=== PATIENT | female | born 2000 | race Caucasian/White ===

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

== ENCOUNTER → 2021-05-29 | Outpatient (CLI) | payer MEDICAID ==
[~2021-05-29] MED LIST changes: +ACHD5005 PO; +BENZ78AE5 TP; +DIBU30OI TOP; +DOCU-239 PO; +IBUP-844 PO
--- NOTE | 2021-05-29 16:13 | Diagnostic Imaging Report ---
EXAM: OB ultrasound complete. DATE: May 29, 2021. COMPARISON: March 28, 2019. INDICATION: 21-year-old female, supervision of otherwise normal . FINDINGS: Multiple grayscale sonographic images were obtained of the gravid uterus. Overview: Within the uterus there is a single living gestation in cephalic position. There is positive movement and heart motion. heart rate was identified at 146 beats per minute. The amnionic fluid volume is subjectively normal. The placenta is anterior and without previa. The cervical length is 5.7 cm. growth parameters are summarized in detail on the accompanying separate chart. The approximate mean gestational age by today's ultrasound measurements is 21 weeks 1 days +/- 1.5 week variability. Estimated weight based on today's measurements is 406 g. anatomic survey: There is no ventriculomegaly (the lateral ventricle measures 7 mm) the cerebellum, cavum septum pellucidum, falx, and cisterna magna are identified. Longitudinal and transverse images of the spine appear unremarkable. There is visualization of the stomach, kidneys and urinary bladder. The cardiac apex and stomach are on the same side of midline. There is a normal four-chamber view of the heart. There is a three-vessel cord with an unremarkable insertion into the abdominal wall. 4 extremities are seen. The upper lip is seen. IMPRESSION: 1. Single living intrauterine with approximate mean gestational age of 21 weeks 1 days +/- 1.5 week. 2. Unremarkable anatomic survey. Biometrical measurements are as follows: Biparietal 4.96 cm, age 21 weeks 1 days. Head circumference 18.30 cm, age 20 weeks 5 days. Abdominal circumference 16.21 cm, age 21 weeks 3 days. Femur length 3.55 cm, age 21 weeks 2 days. Sonographic estimate age: 21 weeks 1 days. Sonographic estimated date of delivery: 10/08/2021. Estimated Weight: 406 gm (+/- 59 gm). LMP percentile: 64%. heart rate: 146 beats per minute. number: 1 of 1. Dictated by: Dictated on workstation # [id number]
== END ==
LOC: RAD 13:00
PROVIDERS: ATTEND Obstetrics & Gynecology
DX: Z34.02 Encounter for supervision of normal first pregnancy, second trimester (principal); Z3A.21 21 weeks gestation of pregnancy
CPT/HCPCS: 76805

== ENCOUNTER 2021-06-10 03:37 | Emergency (ER) | payer MEDICAID ==
[~2021-06-10] VITALS: Ht 157 cm; Wt 62.0 kg
[2021-06-10] MEDS ORDERED: LACTATED RINGERS 1,000 ML IV STA (03:57)
[2021-06-10] MEDS ORDERED: ONDANSETRON 4 MG/2 ML (SDV) Z0FRAN IVP ONE (04:00)
[2021-06-10 04:05] LABS: BASOPHILS # (AUTO) 0.1 10^3/uL (0.0-0.1); BASOPHILS % (AUTO) 0 % (0-10); EOSINOPHILS % (AUTO) 0 % (0-10); HEMATOCRIT 32 % (35-52); HEMOGLOBIN 11.1 g/dL (11.5-16.0); LYMPHOCYTES # (AUTO) 1.8 10^3/uL (1.0-4.0); LYMPHOCYTES % (AUTO) 10 % (12-44); MEAN CORPUSCULAR HEMOGLOBIN 31 pg (25-34); MEAN CORPUSCULAR HGB CONC 35 g/dL (32-36); MEAN CORPUSCULAR VOLUME 90 fL (80-99); MONOCYTES # (AUTO) 0.8 10^3/uL (0.0-1.0); MONOCYTES % (AUTO) 5 % (0-12); NEUTROPHILS # (AUTO) 14.3 10^3/uL (1.8-7.8); NEUTROPHILS % (AUTO) 83 % (42-75); PLATELET COUNT 326 10^3/uL (130-400); WHITE BLOOD COUNT 17.2 10^3/uL (4.3-11.0)
--- NOTE | 2021-06-10 04:13 | ED Abdominal Pain ---
General Chief Complaint: Abdominal/GI Problems Stated Complaint: POSS FOOD POISONING,VOMITING,DIARRHEA,22 WKS PREG Nursing Triage Note: PT AMB TO ER WITH C/O VOMITTING FOR LAST 3 HOURS AND DIARRHIA TWICE THIS MORNING Source of Information: Patient Exam Limitations: No Limitations History of Present Illness Date Seen by Provider: Jun 10, 2021 Time Seen by Provider: 03:50 Initial Comments Here with complaint of approximately 10 episodes of vomiting and 3 episodes of diarrhea in the last few hours. She is approximately 22 weeks . She thinks she ate some bad chicken Bill. Denies fever chills. She is not vaccinated for Covid and denies contact with anybody that is sick. Nobody in the family is sick. Nobody ate the same thing that she did. She is worried about food poisoning. Timing/Duration: 1-3 Hours Severity/Quality: Moderate, Cramping Location: Epigastric Radiation: No Radiation Activities at Onset: None Modifying Factors: Worsens With Eating; Improves With Vomiting Associated Symptoms: No Back Pain, No Chest Pain, No Fever/Chills; Nausea/Vomiting; No Shortness of Air, No Weakness Allergies and Home Medications Allergies Coded Allergies: No Known Drug Allergies (Unverified , 01/01/09) Patient Home Medication List Home Medication List Reviewed: Yes Benzocaine/Menthol (Dermoplast Pain Relieving [place]) 78 Gm Aerosol, 56 ML TP UD PRN for PAIN- SEE INSTRUCTIONS Prescribed by: TONJA SNYDER on 08/11/19636 Dibucaine (Dibucaine) 30 Gm Oint, 0 GM TOP UD PRN for PAIN- SEE INSTRUCTIONS Prescribed by: TONJA SNYDER on 08/11/19636 Docusate Sodium (Dok) 100 Mg Capsule, 100 MG PO BID PRN for CONSTIPATION-1ST LINE Prescribed by: TONJA SNYDER on 08/11/19636 Hydrocodone Bit/Acetaminophen (Lortab 5 Mg Tablet) 1 Tab Tab, 1 TAB PO Q4H PRN for PAIN-MODERATE (5-7) Prescribed by: TONJA SNYDER on 08/11/19636 Ibuprofen (Ibu) 600 Mg Tablet, 600 MG PO Q6HR Prescribed by: OTNJA SNYDER on 08/11/19636 Review of Systems Review of Systems Constitutional: see HPI; No chills, No fever EENTM: No Symptoms Reported Respiratory: Denies Cough, Denies Shortness of Air Cardiovascular: No Symptoms Reported Gastrointestinal: Abdominal Pain, Diarrhea, Nausea, Vomiting Genitourinary: Denies Frequency, Denies Pain Musculoskeletal: no symptoms reported Skin: no symptoms reported All Other Systems Reviewed Negative Unless Noted: Yes Past Qvcynhy-Rnkddd-Qdixpe Hx Patient Social History Tobacco Use?: No Substance use?: No Alcohol Use?: No Pt feels they are or have been: No Immunizations Up To Date Influenza Vaccine Up-to-Date: No; Not Current Past Medical History Surgeries: No Respiratory: No Cardiac: No Neurological: No Expected Date of Delivery: Oct 10, 2021 Reproductive Disorders: No Genitourinary: No Gastrointestinal: No Musculoskeletal: No Endocrine: No HEENT: No Cancer: No Psychosocial: No Integumentary: No Blood Disorders: No Family Medical History Reviewed Nursing Family Hx FH: melanoma MATERNAL GRANDMOTHER ( IN 60'S) Neoplasm PATERNAL GRANDMOTHER (PT UNSURE OF TYPE OF CANCER) Cancer Physical Exam Vital Signs Vital Signs - First Documented 06/10/21 03:47 Temp 36.5 Pulse 88 Resp 17 B/P (MAP) 119/68 (85) Pulse Ox 98 O2 Delivery Room Air Capillary Refill : Less Than 3 Seconds Height/Weight/BMI Height: 5'2.00" Weight: 120lbs. oz. 54.056058cp; 25.00 BMI Method:Stated General Appearance: WD/WN, no apparent distress HEENT: PERRL/EOMI, pharynx normal Neck: full range of motion, supple Respiratory: lungs clear, normal breath sounds Cardiovascular: regular rate, rhythm, no murmur Gastrointestinal: non tender, soft, other (Gravid uterus to the level of umbilicus) Extremities: non-tender, normal inspection Back: normal inspection, no CVA tenderness, no vertebral tenderness Neurologic/Psychiatric: alert, oriented x 3 Skin: normal color, warm/dry Progress/Results/Core Measures Results/Orders Lab Results Laboratory Tests Test 06/10/21 03:57 06/10/21 04:57 Range/Units White Blood Count 17.2 H 4.3-11.0 10^3/uL Red Blood Count 3.55 L 3.80-5.11 10^6/uL Hemoglobin 11.1 L 11.5-16.0 g/dL Hematocrit 32 L 35-52 % Mean Corpuscular Volume 90 80-99 fL Mean Corpuscular Hemoglobin 31 25-34 pg Mean Corpuscular Hemoglobin Concent 35 32-36 g/dL Red Cell Distribution Width 13.3 10.0-14.5 % Platelet Count 326 130-400 10^3/uL Mean Platelet Volume 10.0 9.0-12.2 fL Immature Granulocyte % (Auto) 1 % Neutrophils (%) (Auto) 83 H 42-75 % Lymphocytes (%) (Auto) 10 L 12-44 % Monocytes (%) (Auto) 5 0-12 % Eosinophils (%) (Auto) 0 0-10 % Basophils (%) (Auto) 0 0-10 % Neutrophils # (Auto) 14.3 H 1.8-7.8 10^3/uL Lymphocytes # (Auto) 1.8 1.0-4.0 10^3/uL Monocytes # (Auto) 0.8 0.0-1.0 10^3/uL Eosinophils # (Auto) 0.0 0.0-0.3 10^3/uL Basophils # (Auto) 0.1 0.0-0.1 10^3/uL Immature Granulocyte # (Auto) 0.1 0.0-0.1 10^3/uL Neutrophils % (Manual) 78 % Lymphocytes % (Manual) 8 % Monocytes % (Manual) 8 % Band Neutrophils 6 % Sodium Level 138 135-145 MMOL/L Potassium Level 3.4 L 3.6-5.0 MMOL/L Chloride Level 106 98-107 MMOL/L Carbon Dioxide Level 19 L 21-32 MMOL/L Anion Gap 13 5-14 MMOL/L Blood Urea Nitrogen 11 7-18 MG/DL Creatinine 0.61 0.60-1.30 MG/DL Estimat Glomerular Filtration Rate 125 BUN/Creatinine Ratio 18 Glucose Level 96 70-105 MG/DL Calcium Level 9.0 8.5-10.1 MG/DL Corrected Calcium 9.2 8.5-10.1 MG/DL Total Bilirubin 0.3 0.1-1.0 MG/DL Aspartate Amino Transf (AST/SGOT) 13 5-34 U/L Alanine Aminotransferase (ALT/SGPT) 19 0-55 U/L Alkaline Phosphatase 49 40-136 U/L Total Protein 6.8 6.4-8.2 GM/DL Albumin 3.7 3.2-4.5 GM/DL Urine Color YELLOW Urine Clarity CLEAR Urine pH 6.0 5-9 Urine Specific [place] 1.025 H 1.016-1.022 Urine Protein NEGATIVE NEGATIVE Urine Glucose (UA) NEGATIVE NEGATIVE Urine Ketones NEGATIVE NEGATIVE Urine Nitrite NEGATIVE NEGATIVE Urine Bilirubin NEGATIVE NEGATIVE Urine Urobilinogen 0.2 < = 1.0 MG/DL Urine Leukocyte Esterase NEGATIVE NEGATIVE Urine RBC (Auto) NEGATIVE NEGATIVE Urine RBC NONE /HPF Urine WBC 5-10 H /HPF Urine Squamous Epithelial Cells 2-5 /HPF Urine Crystals NONE /LPF Urine Bacteria FEW H /HPF Urine Casts NONE /LPF Urine Mucus SMALL H /LPF Urine Culture Indicated YES My Orders Orders - IVETH ROWLAND MD Cbc With Automated Diff (06/10/21 03:57) Comprehensive Metabolic Panel (06/10/21 03:57) Ua Culture If Indicated (06/10/21 03:57) Ondansetron Injection (Zofran Injectio (06/10/21 04:00) Lactated Ringers (Lr 1000 Ml Iv Solution (06/10/21 03:57) Ed Iv/Invasive Line Start (06/10/21 03:57) Manual Differential (06/10/21 03:57) Urine Culture (06/10/21 04:57) Medications Given in ED Current Medications Medications Dose Ordered Sig/Micky Route Start Time Stop Time Status Last Admin Dose Admin Ondansetron HCl 4 mg ONCE ONCE IVP 06/10/21 04:00 06/10/21 04:01 DC 06/10/21 04:05 4 MG Vital Signs/I&O 06/10/21 03:47 Temp 36.5 Pulse 88 Resp 17 B/P (MAP) 119/68 (85) Pulse Ox 98 O2 Delivery Room Air Blood Pressure Mean: 85 Progress Progress Note : Progress Note Seen and evaluated. IV, labs and UA ordered. LR 1 L bolus and Zofran 4 mg IV ordered. Monitor patient. 0532: Overall doing better now. White count is a little elevated but may be physiologic in and certainly would be expected after vomiting as well. Urine does show a few whites and small bacteria but I do believe there is possibility of contamination. We will wait for cultures for antibiotics but I will send a copy of the chart to Dr. SNYDER as well. She will call for follow-up with him as well. Discharged home with return precautions. Patient verbalized understanding instructions and agreement with plan. Departure Impression Primary Impression: Nausea and vomiting Qualified Codes: R11.2 - Nausea with vomiting, unspecified Disposition: 01 HOME, SELF-CARE Condition: Improved Departure-Patient Inst. Decision time for Depature: 05:33 Referrals: [facility] (PCP/Family) Primary Care Physician Patient Instructions: Nausea and Vomiting, Adult Add. Discharge Instructions: All discharge instructions reviewed with patient and/or family. Voiced understanding. Clear liquid diet today and advance as tolerated. Drink plenty of fluids by taking small sips frequently. Take medications as directed. Call Dr. SNYDER's office for recheck appointment. Return for worse pain, vomiting, weakness, breathing problems, difficulty with going to the bathroom, burning with urination, fever or other concerns as needed. Scripts Ondansetron (Ondansetron Odt) 4 Mg Tab.rapdis 4 MG PO Q6H PRN for NAUSEA/VOMITING, #8 TAB 0 Refills Prov: IVETH ROWLAND MD 06/10/21 Copy Copies To 1: TONJA SNYDER TIMOTHY D MD Jun 10, 2021 04:13
[2021-06-10 04:20] LABS: ALBUMIN 3.7 GM/DL (3.2-4.5)
[2021-06-10 04:21] LABS: POTASSIUM 3.4 MMOL/L (3.6-5.0)
[2021-06-10 04:23] LABS: TOTAL PROTEIN 6.8 GM/DL (6.4-8.2)
[2021-06-10 04:25] LABS: BILIRUBIN,TOTAL 0.3 MG/DL (0.1-1.0)
[2021-06-10 04:26] LABS: CREATININE SERUM 0.61 MG/DL (0.60-1.30)
[2021-06-10 04:49] LABS: BAND NEUTROPHILS 6 %; LYMPHOCYTES % (MANUAL) 8 %; MONOCYTES % (MANUAL) 8 %; NEUTROPHILS % (MANUAL) 78 %
[2021-06-10 05:03] LABS: BILIRUBIN,URINE NEGATIVE (NEGATIVE); CLARITY,URINE CLEAR; COLOR,URINE YELLOW; GLUCOSE, URINE (UA) NEGATIVE (NEGATIVE); KETONES,URINE NEGATIVE (NEGATIVE); LEUKOCYTE ESTERASE ,URINE NEGATIVE (NEGATIVE); NITRITE,URINE NEGATIVE (NEGATIVE); PROTEIN,URINE NEGATIVE (NEGATIVE)
[2021-06-10 05:25] LABS: BACTERIA,URINE FEW /HPF
[2021-06-10] MEDS ORDERED: ONDA4TAB11 PO (05:35)
[2021-06-10 05:45] VITALS: BP 123/73
== END 2021-06-10 05:46 | disposition home or self-care (01) ==
LOC: EDUNIT# 03:37 → ER 03:41
DX: O21.0 Mild hyperemesis gravidarum (principal); Z3A.22 22 weeks gestation of pregnancy
CPT/HCPCS: 36415; 80053; 81000; 85007; 85027; 87088

== ENCOUNTER 2021-10-03 13:42 | Inpatient (IN) | payer MEDICAID ==
[~2021-10-03] VITALS: Ht 160 cm; Wt 75.5 kg
[2021-10-03] VITALS (40 sets, daily range): BP systolic 100–166; BP diastolic 53–80
[~2021-10-03 13:42] MED LIST changes: +ONDA4TAB11 PO
[2021-10-03] MEDS: CATHETER FLUSH 10 ML SYR IV SCH ×2 (14:00→22:05)
[2021-10-03 14:05] LABS: BASOPHILS % (AUTO) 0 % (0-10); EOSINOPHILS # (AUTO) 0.1 10^3/uL (0.0-0.3); EOSINOPHILS % (AUTO) 0 % (0-10); HEMATOCRIT 36 % (35-52); HEMOGLOBIN 12.3 g/dL (11.5-16.0); LYMPHOCYTES # (AUTO) 1.7 10^3/uL (1.0-4.0); LYMPHOCYTES % (AUTO) 13 % (12-44); MEAN CORPUSCULAR HEMOGLOBIN 31 pg (25-34); MEAN CORPUSCULAR HGB CONC 34 g/dL (32-36); MEAN CORPUSCULAR VOLUME 92 fL (80-99); MEAN PLATELET VOLUME 10.5 fL (9.0-12.2); MONOCYTES # (AUTO) 0.8 10^3/uL (0.0-1.0); MONOCYTES % (AUTO) 6 % (0-12); NEUTROPHILS # (AUTO) 10.2 10^3/uL (1.8-7.8); NEUTROPHILS % (AUTO) 80 % (42-75); PLATELET COUNT 265 10^3/uL (130-400); WHITE BLOOD COUNT 12.9 10^3/uL (4.3-11.0)
[2021-10-03] MEDS ORDERED: MINERAL OIL CONCENTRATE 99.9% 15 ML UDC TOP PRN (14:15)
[2021-10-03] MEDS ORDERED: fentaNYL 2 mcg/ml BUPIVA 0.125 100 ML ONE (14:34)
[2021-10-03] MEDS ORDERED: fentaNYL INJ 100 MCG/2 ML AMP ONE (14:43)
[2021-10-03] MEDS ORDERED: BUPIVACAINE 0.25% 10 ML (SENSORCAINE) VIAL ONE ×2 (14:43→16:10)
[2021-10-03] MEDS ORDERED: FLU QUADRIvalent (3YOA+) 60 mcg/0.5 ml 2021-22(AFLURIA) IM ONE (15:00)
[2021-10-03] MEDS: D5 LR IV SOLUTION 1,000 ML IV SCH ×2 (15:01→22:04)
[2021-10-03] MEDS: fentaNYL 2 mcg/ml BUPIVA 0.125 100 ML IV SCH (15:04)
[2021-10-03] MEDS ORDERED: NALOXONE 0.4 MG/ML 1 ML (NARCAN) VIAL IV PRN ×2 (15:30→16:45)
[2021-10-03] MEDS ORDERED: LACTATED RINGERS 1,000 ML IV ONE (15:30)
[2021-10-03] MEDS ORDERED: CATHETER FLUSH 10 ML SYR IV PRN (15:30)
[2021-10-03] MEDS ORDERED: LIDOCAINE PF 2% 5 ML (XYLOCAINE) VIAL ONE (15:59)
[2021-10-03] MEDS ORDERED: OXYTOCIN PRE-MIX DRIP 500 ML IV ONE (16:39)
[2021-10-03] MEDS ORDERED: LIDOCAINE/EPI 2% 1:200,00 (XYLOCAINE) 10 ML VIAL ONE (16:39)
[2021-10-03] MEDS ORDERED: BENZOCAINE/MENTHOL (DERMOPLAST) 56 ML CAN TP PRN (16:45)
[2021-10-03] MEDS ORDERED: WITCH HAZEL(TUCKS) 40 EA JAR TOP PRN (16:45)
[2021-10-03] MEDS ORDERED: TETANUS,DIPTH,PERTUSS P/F (BOOSTRIX) 0.5 ML VIAL IM ONE (16:45)
[2021-10-03] MEDS ORDERED: DIBUCAINE 1% OINTMENT 30 GM TUBE TOP PRN (16:45)
[2021-10-03] MEDS ORDERED: HYDROcodone/APAP 5 MG/325 MG (LORTAB) TAB PO PRN (16:45)
[2021-10-03] MEDS ORDERED: MEASLES,MUMPS,RUBELLA 1 EA INJ SQ ONE (16:45)
--- NOTE | 2021-10-03 16:45 | History & Physical-OB ---
OB - Chief Complaint & HPI Date/Time Date of Admission: Date of Admission: Oct 03, 2021 at 13:42 Date seen by a Provider: Oct 03, 2021 Time Seen by a Provider: 16:00 Chief Complaint/History OB-Reason for Admission/Chief: Onset of Labor Hx : 2 Hx Para: 1 Expected Date of Delivery: Oct 10, 2021 Gestational Age in Weeks: 39 Gestational Age in Days: 0 Admission Nurse Assessment Rev: Yes History of Labs O neg Antibody neg RI RPR NR HBsAg nR HIV NR GC neg GBS neg Allergies and Home Medications Allergies Coded Allergies: No Known Drug Allergies (Unverified , 01/01/09) Patient Home Medication List Home Medication List Reviewed: Yes Benzocaine/Menthol (Dermoplast Pain Relieving [place]) 78 Gm Aerosol, 56 ML TP UD PRN for PAIN- SEE INSTRUCTIONS Prescribed by: TONJA SNYDER on 08/11/19636 Dibucaine (Dibucaine) 30 Gm Oint, 0 GM TOP UD PRN for PAIN- SEE INSTRUCTIONS Prescribed by: TONJA SNYDER on 08/11/19636 Docusate Sodium (Dok) 100 Mg Capsule, 100 MG PO BID PRN for CONSTIPATION-1ST LINE Prescribed by: TONJA SNYDER on 08/11/1937 Hydrocodone Bit/Acetaminophen (Lortab 5 Mg Tablet) 1 Tab Tab, 1 TAB PO Q4H PRN for PAIN-MODERATE (5-7) Prescribed by: TONJA SNYDER on 08/11/19636 Ibuprofen (Ibu) 600 Mg Tablet, 600 MG PO Q6HR Prescribed by: TONJA SNYDER on 08/11/19636 Ondansetron (Ondansetron Odt) 4 Mg Tab.rapdis, 4 MG PO Q6H PRN for NA USEA/VOMITING Prescribed by: IVETH ROWLAND on 06/10/21 0535 OB - History Hx of Present Care: Yes Ultrasounds: Normal mid trimester US Obstetrical Complications: None Medical Complications: None Delivery History Hx Blood Disorders: No Patient Past Medical History n/a Immunizations Influenza Vaccine Up-to-Date: No; Not Current Hepatitis A: No Hepatitis B: No OB - Admission Exam Physical Exam Vitals: Vital Signs 10/03/21 10/03/21 10/03/21 13:31 15:30 16:05 Temp 36.6 Pulse 77 Resp 18 B/P (MAP) 139/73 (95) Pulse Ox 99 O2 Delivery Room Air HEENT: NCAT Heart: Rhythm Normal Lungs: Clear Abdomen: Gravid Extremities: Normal Reflexes: Normal Cervical Dilatation: 7cm Effacement: 75% Station: -1 Membranes: Intact Heart Rate: 130's Accelerations: Accelerations Present Decelerations: No Decelerations Short Term Variability: Present Director Of Claims Variability: Average (6-25) Contractions on Admission: 6-10 Minutes Apart Intensity: Mild Labs Laboratory Tests Test 10/03/21 13:45 Range/Units White Blood Count 12.9 H 4.3-11.0 10^3/uL Red Blood Count 3.93 3.80-5.11 10^6/uL Hemoglobin 12.3 11.5-16.0 g/dL Hematocrit 36 35-52 % Mean Corpuscular Volume 92 80-99 fL Mean Corpuscular Hemoglobin 31 25-34 pg Mean Corpuscular Hemoglobin Concent 34 32-36 g/dL Red Cell Distribution Width 13.3 10.0-14.5 % Platelet Count 265 130-400 10^3/uL Mean Platelet Volume 10.5 9.0-12.2 fL Immature Granulocyte % (Auto) 1 % Neutrophils (%) (Auto) 80 H 42-75 % Lymphocytes (%) (Auto) 13 12-44 % Monocytes (%) (Auto) 6 0-12 % Eosinophils (%) (Auto) 0 0-10 % Basophils (%) (Auto) 0 0-10 % Neutrophils # (Auto) 10.2 H 1.8-7.8 10^3/uL Lymphocytes # (Auto) 1.7 1.0-4.0 10^3/uL Monocytes # (Auto) 0.8 0.0-1.0 10^3/uL Eosinophils # (Auto) 0.1 0.0-0.3 10^3/uL Basophils # (Auto) 0.0 0.0-0.1 10^3/uL Immature Granulocyte # (Auto) 0.1 0.0-0.1 10^3/uL OB - Assessment/Plan/Diagnosis Assessment Assessment: active labor Admission Dx 21 yo @ 39 weeks Active labor GBS neg Admission Status: Inpatient Order (span 2 midnights) Reason for Inpatient Admission: Active labor at term Plan Plan: Expectant Management TONJA SNYDER DO Oct 03, 2021 16:45
[2021-10-03] MEDS: OXYTOCIN PRE-MIX DRIP 500 ML IV SCH ×2 (17:22→18:00)
--- NOTE | 2021-10-03 17:38 | OB Labor & Delivery Record ---
L&D History Date of Service Date of Service: Oct 03, 2021 History Expected Date of Delivery: Oct 10, 2021 Gestational Age in Weeks: 39 Hx : 2 Hx Para: 1 Complications Events: Routine care Operative Indications (Cesarea: N/A-Vaginal Delivery Intrapartal Events: None L&D Stage1 Stage One Onset of Labor - Date: Oct 03, 2021 Monitors and Tracing Monitor Mode: External Heart Rate: 140 Monitor Accelerations: Uniform Station: -1 Half-Way Variability: Average (6-10) Short Term Variability: Present Presentation: Vertex Vital Signs VS - Last 72 Hours, by Label 10/03/21 10/03/21 10/03/21 10/03/21 13:31 14:46 14:54 14:57 Temp 36.6 Pulse 81 85 73 93 Resp 14 16 B/P (MAP) 139/74 (95) 166/77 (106) 126/60 (82) Pulse Ox 97 97 97 98 O2 Delivery Room Air Room Air 10/03/21 10/03/21 10/03/21 10/03/21 14:58 15:04 15:06 15:10 Pulse 118 100 78 79 B/P (MAP) 150/68 (95) 141/79 (99) 145/75 (98) 137/76 (96) Pulse Ox 100 99 98 98 10/03/21 10/03/21 10/03/21 10/03/21 15:13 15:16 15:19 15:25 Pulse 95 69 74 69 B/P (MAP) 136/66 (89) 127/60 (82) 122/60 (80) 130/62 (84) Pulse Ox 98 97 97 98 O2 Delivery Room Air Room Air 10/03/21 10/03/21 10/03/21 10/03/21 15:30 15:35 15:40 15:45 Pulse 66 72 64 63 Resp 18 B/P (MAP) 136/80 (98) 129/59 (82) 126/60 (82) 129/61 (83) Pulse Ox 99 98 98 99 O2 Delivery Room Air 10/03/21 10/03/21 10/03/21 10/03/21 15:50 15:55 16:00 16:05 Pulse 66 71 62 77 B/P (MAP) 133/60 (84) 139/69 (92) 131/61 (84) 139/73 (95) Pulse Ox 98 97 98 99 10/03/21 10/03/21 10/03/21 10/03/21 16:14 16:19 16:24 16:26 Pulse 81 89 91 88 B/P (MAP) 132/60 (84) 122/56 (78) 153/67 (95) 126/60 (82) Pulse Ox 98 99 100 100 10/03/21 10/03/21 10/03/21 16:30 16:33 16:36 Pulse 81 96 98 B/P (MAP) 122/56 (78) 126/58 (80) 118/60 (79) Pulse Ox 99 96 99 Rupture of Membranes Spontaneous Ruture of Membrane: Yes Amniotic Membrane Rupture Time: 1637 Amniotic Membrane Fluid Desc.: Clear Vaginal Bleeding Description: Normal Show Induction/Anesthesia Epidural Cath Placement - Time: 1621 Progress/Notes Patient admitted in active labor, she progressed to complete and + 2 station with AROM performed at 8 cm dilatation and epidural was received. L&D Stage2 Stage Two Stage II Date: Oct 03, 2021 Monitors and Tracing Monitor Mode: External Heart Rate: 140 Monitor Accelerations: Uniform Monitor Decelerations: Variable Directory Assistance Operator Variability: Average (6-10) Short Term Variability: Present Position: Right Occiput Anterior Presentation: Vertex Cord Descript/Complications Cord Vessel Description: 3 Vessels Delivery Type Delivery Method: Spontaneous Vaginal Anterior Shoulder: Right Episiotomy/Perineal Laceration Laceraction(s)/Extensions: No Condition of Delivery 1 minute Comment: 9 5 minute Comment: 9 Notes Live female weight 8lbs 0 oz Condition of Infant Condition of : Living Exam: No Observed Abnormalities Resuscitation Resuscitation: N/A - Spontaneous Resp L&D Stage3 Stage Three Stage III Date: Oct 03, 2021 Pictocin Pitocin Administration Comment: 30 mu wide open after delivery of placenta Placenta Delivery Placenta Delivery: Spontaneous Delivery Summary Summary Estimated blood loss (mL): 300 Attending at delivery: Tonja Snyder DO Condition of Delivery Examined: Uterus Explored Post Hemorrhage: No Condition of Mother stable Condition of (s) stable TONJA SNYDER DO Oct 03, 2021 17:38
[2021-10-03] MEDS: IBUPROFEN 600 MG (MOTRIN) TAB PO SCH (19:53)
[2021-10-03] MEDS: DOCUSATE SODIUM 100 MG (COLACE) CAP PO SCH (19:53)
[2021-10-03] MEDS ORDERED: CATHETER FLUSH 10 ML SYR IV SCH (22:00)
[2021-10-04] VITALS: BP 119/71
[2021-10-04] MEDS: IBUPROFEN 600 MG (MOTRIN) TAB PO SCH ×3 (00:15→14:37)
[2021-10-04] MEDS: fentaNYL 2 mcg/ml BUPIVA 0.125 100 ML IV SCH (00:15)
[2021-10-04 04:30] VITALS: BP 126/71
[2021-10-04 06:03] LABS: BASOPHILS # (AUTO) 0.1 10^3/uL (0.0-0.1); BASOPHILS % (AUTO) 0 % (0-10); EOSINOPHILS # (AUTO) 0.1 10^3/uL (0.0-0.3); EOSINOPHILS % (AUTO) 1 % (0-10); HEMATOCRIT 35 % (35-52); HEMOGLOBIN 11.7 g/dL (11.5-16.0); LYMPHOCYTES # (AUTO) 2.5 10^3/uL (1.0-4.0); LYMPHOCYTES % (AUTO) 19 % (12-44); MEAN CORPUSCULAR HEMOGLOBIN 31 pg (25-34); MEAN CORPUSCULAR HGB CONC 34 g/dL (32-36); MEAN CORPUSCULAR VOLUME 92 fL (80-99); MEAN PLATELET VOLUME 10.4 fL (9.0-12.2); MONOCYTES # (AUTO) 0.8 10^3/uL (0.0-1.0); MONOCYTES % (AUTO) 6 % (0-12); NEUTROPHILS # (AUTO) 9.4 10^3/uL (1.8-7.8); NEUTROPHILS % (AUTO) 73 % (42-75); PLATELET COUNT 245 10^3/uL (130-400); WHITE BLOOD COUNT 12.9 10^3/uL (4.3-11.0)
[2021-10-04] MEDS ORDERED: PRENATAL VITAMIN 1 EA TAB PO SCH (07:00)
[2021-10-04] MEDS ORDERED: FERROUS SULF 325 MG (IRON) TAB PO SCH (09:00)
[2021-10-04 09:05] VITALS: BP 124/78
[2021-10-04] MEDS: DOCUSATE SODIUM 100 MG (COLACE) CAP PO SCH (09:12)
--- NOTE | 2021-10-04 10:26 | Postpartum Progress Note ---
Note Note Day # 1 Subjective: Patient is without complaints. Ambulating, voiding. Tolerating a regular diet without nausea or vomiting. Normal lochia. Pain is well controlled with oral pain medications. Objective: Physical Exam: General - Alert and oriented, no apparent distress Abdomen - Soft, appropriately tender to palpation, non-distended, fundus firm at umbilicus Extremities - no edema, negative Gillian's bilaterally Assessment: PPD 1 NVD Plan: Routine care. Encourage breast feeding. Encourage ambulation. Ferrous sulfate supplementation. Plan for discharge today Vitals - Labs Vital Signs - I&O Vital Signs Date Time Temp Pulse Resp B/P (MAP) Pulse Ox O2 Delivery O2 Flow Rate FiO2 10/04/21 04:30 36.1 62 18 126/71 (89) 98 Room Air 10/04/21 00:00 36.6 74 14 119/71 (87) 98 Room Air 10/03/21 20:26 97 Room Air 10/03/21 20:00 36.6 97 18 100/58 (72) 97 10/03/21 18:46 99 18 122/59 (80) 10/03/21 18:40 86 18 117/58 (77) 10/03/21 18:10 88 14 122/61 (81) 10/03/21 17:55 93 16 107/57 (74) 10/03/21 17:40 95 16 132/68 (89) 10/03/21 17:25 36.8 110 18 117/53 (74) 10/03/21 17:00 99 133/71 (91) 100 10/03/21 16:55 82 125/58 (80) 100 10/03/21 16:50 87 107/53 (71) 100 10/03/21 16:46 85 133/62 (85) 100 10/03/21 16:43 89 115/56 (75) 100 10/03/21 16:40 103 115/73 (87) 100 10/03/21 16:36 98 118/60 (79) 99 10/03/21 16:33 96 126/58 (80) 96 10/03/21 16:30 81 122/56 (78) 99 10/03/21 16:26 88 126/60 (82) 100 10/03/21 16:24 91 153/67 (95) 100 10/03/21 16:19 89 122/56 (78) 99 10/03/21 16:14 81 132/60 (84) 98 10/03/21 16:05 77 139/73 (95) 99 10/03/21 16:00 62 131/61 (84) 98 10/03/21 15:55 71 139/69 (92) 97 10/03/21 15:50 66 133/60 (84) 98 10/03/21 15:45 63 129/61 (83) 99 10/03/21 15:40 64 126/60 (82) 98 10/03/21 15:35 72 129/59 (82) 98 10/03/21 15:30 66 18 136/80 (98) 99 Room Air 10/03/21 15:25 69 130/62 (84) 98 10/03/21 15:19 74 122/60 (80) 97 10/03/21 15:16 69 127/60 (82) 97 Room Air 10/03/21 15:13 95 136/66 (89) 98 Room Air 10/03/21 15:10 79 137/76 (96) 98 10/03/21 15:06 78 145/75 (98) 98 10/03/21 15:04 100 141/79 (99) 99 10/03/21 14:58 118 150/68 (95) 100 10/03/21 14:57 93 126/60 (82) 98 10/03/21 14:54 73 166/77 (106) 97 10/03/21 14:46 85 16 139/74 (95) 97 Room Air 10/03/21 13:31 36.6 81 14 97 Room Air I & O 10/04/21 07:00 Intake Total 3025 ml Output Total 900 ml Balance 2125 ml Labs Laboratory Tests 10/03/21 13:45: White Blood Count 12.9H, Red Blood Count 3.93, Hemoglobin 12.3, Hematocrit 36, Mean Corpuscular Volume 92, Mean Corpuscular Hemoglobin 31, Mean Corpuscular Hemoglobin Concent 34, Red Cell Distribution Width 13.3, Platelet Count 265, Mean Platelet Volume 10.5, Immature Granulocyte % (Auto) 1, Neutrophils (%) (Auto) 80H, Lymphocytes (%) (Auto) 13, Monocytes (%) (Auto) 6, Eosinophils (%) (Auto) 0, Basophils (%) (Auto) 0, Neutrophils # (Auto) 10.2H, Lymphocytes # (Auto) 1.7, Monocytes # (Auto) 0.8, Eosinophils # (Auto) 0.1, Basophils # (Auto) 0.0, Immature Granulocyte # (Auto) 0.1 10/04/21 05:39: White Blood Count 12.9H, Red Blood Count 3.75L, Hemoglobin 11.7, Hematocrit 35, Mean Corpuscular Volume 92, Mean Corpuscular Hemoglobin 31, Mean Corpuscular Hemoglobin Concent 34, Red Cell Distribution Width 13.3, Platelet Count 245, Mean Platelet Volume 10.4, Immature Granulocyte % (Auto) 1, Neutrophils (%) (Auto) 73, Lymphocytes (%) (Auto) 19, Monocytes (%) (Auto) 6, Eosinophils (%) ( Auto) 1, Basophils (%) (Auto) 0, Neutrophils # (Auto) 9.4H, Lymphocytes # (Auto) 2.5, Monocytes # (Auto) 0.8, Eosinophils # (Auto) 0.1, Basophils # (Auto) 0.1, Immature Granulocyte # (Auto) 0.1 TONJA SNYDER DO Oct 04, 2021 10:26
--- NOTE | 2021-10-04 10:28 | Discharge Inst-Women's Service ---
Discharge Inst-Women's Serv Depart Medication/Instructions New, Converted or Re-Newed RX: Transmitted to Pharmacy Final Diagnosis PPD 1 NVD Problems Reviewed?: Yes Consults/Follow Up Additional Follow Up: Yes Orders/Referrals Dr. Snyder in 6 weeks Activity Activity: Activity as Tolerated Driving Instructions: No Driving for 1 Week NO SMOKING: NO SMOKING Nothing Inside Vagina: No Douching, No [place], No Tampons Diet Discharge Diet: No Restrictions Symptoms to Report to : Bleeding Excessive, Pain Increased, Fever Over 101 Degrees F, Vaginal Bleeding Increase, Questions/Concerns For Any Problems or Questions: Contact Your Physician TONJA SNYDER DO Oct 04, 2021 10:28
[2021-10-04] MEDS ORDERED: ACHD5005 PO (10:29)
[2021-10-04] MEDS ORDERED: DOCU100C37 PO (10:29)
[2021-10-04] MEDS ORDERED: IBUP-844 PO (10:29)
[2021-10-04] MEDS ORDERED: BENZ78AE5 TP (10:29)
[2021-10-04] MEDS ORDERED: DIBU30OI TOP (10:29)
[2021-10-04 12:00] VITALS: BP 118/58
--- NOTE | 2021-10-04 14:26 | Anesthesia-Regional Post-Op ---
Regional Post Op Complications Complications None Follow Up Care/Instructions Patient Instructions None needed. Anesthesia/Patient Condition Patient is doing well, ambulating without difficulty, no complaints, stable vital signs, no apparent adverse anesthesia problems. GIGI ZEPEDA DO Oct 04, 2021 14:26
[2021-10-04 16:20] VITALS: BP 126/62
[2021-10-04 18:50] VITALS: BP 126/62
== END 2021-10-04 20:05 | disposition home or self-care (01) | DRG 807 ==
LOC: LDRP 13:42
PROVIDERS: ADMIT Obstetrics & Gynecology; ATTEND Obstetrics & Gynecology
PROC: 10E0XZZ Delivery of Products of Conception, External Approach (ICD-10-PCS; principal; 2021-10-03)
PROC: 10907ZC Drainage of Amniotic Fluid, Therapeutic from Products of Conception, Via Natural or Artificial Opening (ICD-10-PCS; 2021-10-03)
DX: O80 Encounter for full-term uncomplicated delivery (principal); Z37.0 Single live birth; Z3A.39 39 weeks gestation of pregnancy
CPT/HCPCS: 36415; 83033; 85025; 86850; 86900; 86901; 99212

== ENCOUNTER 2023-01-14 01:02 | Emergency (ER) | payer MEDICAID ==
[~2023-01-14] VITALS: Ht 157.5 cm; Wt 62.0 kg
[~2023-01-14 01:02] MED LIST changes: +DOCU100C37 PO
[2023-01-14] MEDS ORDERED: LACTATED RINGERS 1,000 ML IV ONE (01:30)
[2023-01-14] MEDS ORDERED: PROMETHAZINE INJ 25 MG/ML (PHENERGAN) AMP IVP ONE (01:30)
--- NOTE | 2023-01-14 01:33 | ED General ---
General Stated Complaint: VOMITING/17 WKS PREG Source of Information: Patient Exam Limitations: No Limitations History of Present Illness Date Seen by Provider: Jan 14, 2023 Time Seen by Provider: 01:19 Initial Comments This 22-year-old young lady presents to the emergency room at about 17 weeks gestational age with complaints of nausea, vomiting, and diarrhea. A similar acute illness has been working its way through her household. She has some soreness in the epigastrium from vomiting. She is afebrile. 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 Symptoms started about 1800. Allergies and Home Medications Allergies Coded Allergies: No Known Drug Allergies (Unverified , 01/01/09) Patient Home Medication List Home Medication List Reviewed: Yes Benzocaine/Menthol (Dermoplast Pain Relieving Biggs) 78 Gm Aerosol, 0 EA TP UD PRN for PAIN- SEE INSTRUCTIONS Prescribed by: TONJA SNYDER on 10/04/21 1029 Dibucaine (Dibucaine) 30 Gm Oint, 0 GM TOP UD PRN for PAIN- SEE INSTRUCTIONS Prescribed by: TONJA SNYDER on 10/04/21 1029 Docusate Sodium (Docusate Sodium) 100 Mg Capsule, 100 MG PO BID PRN for CONSTIPATION-1ST LINE Prescribed by: TONJA SNYDER on 10/04/21 1029 Hydrocodone Bit/Acetaminophen (HYDROcodone/APAP 5 MG/325 MG TAB) 1 Tab Tab, 1 EA PO Q4H PRN for PAIN-MODERATE (5-7) Prescribed by: TONJA SNYDER on 10/04/21 1029 Ibuprofen (Ibu) 600 Mg Tablet, 600 MG PO Q6HR Prescribed by: TONJA SNYDER on 10/04/21 1029 Promethazine HCl (Promethazine Tablet) 25 Mg Tablet, 25 MG PO Q8H PRN for NAUSEA/VOMITING Prescribed by: SARAI CLAIRE on 01/14/23 0243 Review of Systems Review of Systems Constitutional: no symptoms reported EENTM: no symptoms reported Respiratory: no symptoms reported Cardiovascular: no symptoms reported Gastrointestinal: see HPI Genitourinary: see HPI : Yes Musculoskeletal: no symptoms reported Skin: no symptoms reported Psychiatric/Neurological: No Symptoms Reported Hematologic/Lymphatic: No Symptoms Reported Immunological/Allergic: no symptoms reported Past Ngjkiyn-Ebyroz-Tyckvk Hx Patient Social History Tobacco Use?: No Use of E-Cig and/or Vaping dev: No Substance use?: No Alcohol Use?: No Past Medical History Surgery/Hospitalization HX: None Surgeries: No Respiratory: No Cardiac: No Neurological: No : Yes Reproductive Disorders: No Genitourinary: No Gastrointestinal: No Musculoskeletal: No Endocrine: No HEENT: No Cancer: No Psychosocial: No Integumentary: No Blood Disorders: No Family Medical History FH: melanoma MATERNAL GRANDMOTHER ( IN 60'S) Neoplasm PATERNAL GRANDMOTHER (PT UNSURE OF TYPE OF CANCER) Cancer Physical Exam Vital Signs Vital Signs - First Documented 01/14/23 01/14/23 01:10 03:07 Temp 37.0 Pulse 86 Resp 16 B/P (MAP) 100/53 (69) Pulse Ox 99 O2 Delivery Room Air Capillary Refill : Height, Weight, BMI Height: 5'2.00" Weight: 120lbs. oz. [id number]; 29.49 BMI Method:Stated General Appearance: No Apparent Distress, WD/WN HEENT: PERRL/EOMI, Normal ENT Inspection, Other (Oropharynx somewhat dry) Neck: Normal Inspection Respiratory: Lungs Clear, Normal Breath Sounds, No Accessory Muscle Use Cardiovascular: Regular Rate, Rhythm, No Edema, No Murmur Gastrointestinal: Normal Bowel Sounds, Non Tender, Soft Extremity: Normal Inspection, No Pedal Edema Neurologic/Psychiatric: Alert, Oriented x3, No Motor/Sensory Deficits, Normal Mood/Affect Skin: Normal Color, Warm/Dry Progress/Results/Core Measures Suspected Sepsis SIRS Temperature: Pulse: Respiratory Rate: Blood Pressure / Mean: Laboratory Tests 01/14/23 01:45: Creatinine 0.54L Results/Orders Lab Results Laboratory Tests Test 01/14/23 01:45 Range/Units Sodium Level 139 135-145 MMOL/L Potassium Level 3.6 3.6-5.0 MMOL/L Chloride Level 107 98-107 MMOL/L Carbon Dioxide Level 21 21-32 MMOL/L Anion Gap 11 5-14 MMOL/L Blood Urea Nitrogen 10 7-18 MG/DL Creatinine 0.54 L 0.60-1.30 MG/DL Estimat Glomerular Filtration Rate 134 BUN/Creatinine Ratio 19 Glucose Level 95 70-105 MG/DL Calcium Level 8.8 8.5-10.1 MG/DL Magnesium Level 1.7 1.6-2.4 MG/DL My Orders Orders - SARAI MARIE MD Basic Metabolic Panel (01/14/23 01:20) Magnesium (01/14/23 01:20) Ed Iv/Invasive Line Start (01/14/23 01:20) Lactated Ringers (Lr 1000 Ml Iv Solution (01/14/23 01:30) Promethazine Injection (Phenergan Injec (01/14/23 01:30) Famotidine Injection (Pepcid Injection) (01/14/23 01:45) Medications Given in ED Current Medications Medications Dose Ordered Sig/Micky Route Start Time Stop Time Status Last Admin Dose Admin Famotidine 20 mg ONCE ONCE IVP 01/14/23 01:45 01/14/23 01:46 DC 01/14/23 01:45 20 MG Lactated Ringer's 1,000 ml @ 0 mls/hr Q0M ONCE IV 01/14/23 01:30 01/14/23 01:31 DC 01/14/23 01:45 0 MLS/HR Promethazine HCl 25 mg ONCE ONCE IVP 01/14/23 01:30 01/14/23 01:31 DC 01/14/23 01:42 25 MG Vital Signs/I&O 01/14/23 01/14/23 01:10 03:07 Temp 37.0 Pulse 86 68 Resp 16 16 B/P (MAP) 100/53 (69) 96/68 Pulse Ox 99 O2 Delivery Room Air Capillary Refill : Progress Note #1: Time: 01:31 Progress Note Triage report was received from nursing staff at 0119. Labs and initial therapy were ordered based on nursing staff report and requests. Patient was interviewed and examined at 0127. Exam was relatively unremarkable. Mucous membranes were somewhat dry. Patient complained of sore epigastrium with vomiting. We will add Pepcid to her Phenergan and IV fluids. Disposition will be based on review of labs and response to therapy. heart tones by nursing staff were in the 150s by Doppler. Progress Note #2: Time: 02:40 Progress Note BMP and magnesium were reviewed by me and were unremarkable by my interpretation. Patient is feeling improved after IV fluids, Phenergan, and Pepcid. See discharge instructions for further discussion. Departure Impression Primary Impression: Nausea vomiting and diarrhea Additional Impression: Qualified Codes: Z3A.17 - 17 weeks gestation of Disposition: 01 HOME, SELF-CARE Condition: Improved Departure-Patient Inst. Decision time for Depature: 02:41 Referrals: [facility] (PCP/Family) Primary Care Physician Patient Instructions: Diarrhea in adolescents and adults, Nausea and Vomiting, Adult ED Add. Discharge Instructions: Start with a noncarbonated clear liquid diet. Gradually advance your diet with small quantities of bland food as tolerated. Avoid dairy products, fatty foods, and greasy foods for the next few days. Use Phenergan (promethazine) as prescribed for nausea and vomiting. Please be aware this medication may cause drowsiness. You should not drive, operate machinery, or make important decisions while on this medication. Return to care if you have worsening symptoms despite following these instructions. Scripts Promethazine HCl (Promethazine Tablet) 25 Mg Tablet 25 MG PO Q8H PRN for NAUSEA/VOMITING, #10 TAB Prov: SARAI MARIE MD 01/14/23 Copy Copies To 1: TONJA SNYDER JOSHUA T MD Jan 14, 2023 01:32
[2023-01-14] MEDS ORDERED: FAMOTIDINE 20MG/2ML IV (PEPCID) IVP ONE (01:45)
[2023-01-14 02:24] LABS: POTASSIUM 3.6 MMOL/L (3.6-5.0)
[2023-01-14 02:25] LABS: CALCIUM 8.8 MG/DL (8.5-10.1)
[2023-01-14 02:29] LABS: CREATININE SERUM 0.54 MG/DL (0.60-1.30)
[2023-01-14 02:32] LABS: MAGNESIUM 1.7 MG/DL (1.6-2.4)
[2023-01-14] MEDS ORDERED: PROM25TA14 PO (02:43)
[2023-01-14 03:07] VITALS: BP 96/68
== END 2023-01-14 03:07 | disposition home or self-care (01) ==
LOC: EDUNIT# 01:02 → ER 01:05
DX: O21.9 Vomiting of pregnancy, unspecified (principal); O26.892 Other specified pregnancy related conditions, second trimester; R10.13 Epigastric pain; R19.7 Diarrhea, unspecified; Z3A.17 17 weeks gestation of pregnancy
CPT/HCPCS: 36415; 80048; 83735